=== PATIENT | male | born 1995 | race Two or more races ===

== ENCOUNTER 2023-10-05 19:40 | Emergency (ER) | payer MEDICAID, OTHER ==
[~2023-10-05] VITALS: Ht 188 cm; Wt 72.6 kg
[2023-10-05 19:54] VITALS: TEMP 98.4
[2023-10-05] MEDS ORDERED: HALOPERIDOL LACTATE INJ 5 MG/ML VIAL IM ONE (20:30)
[2023-10-05] MEDS ORDERED: MIDAZOLAM HCL 2 MG/2ML VIAL IV ONE (20:30)
[2023-10-05] MEDS ORDERED: MIDAZOLAM HCL 2 MG/2ML VIAL ONE (20:33)
[2023-10-05] MEDS ORDERED: HALOPERIDOL LACTATE INJ 5 MG/ML VIAL ONE (20:33)
[2023-10-06 06:51] VITALS: BP 131/84; O2SAT 99
== END 2023-10-06 06:51 | disposition home or self-care (01) ==
LOC: ER 19:42 → EDBD 19:42 → ER 10-06 06:51
DX: R45.1 Restlessness and agitation (principal); T41.295A Adverse effect of other general anesthetics, initial encounter; Y92.89 Other specified places as the place of occurrence of the external cause
CPT/HCPCS: 99284; 96372 ×2; J1630; J2250